=== PATIENT | female | born 1995 | race Caucasian/White ===

== ENCOUNTER 2017-01-12 08:40 | Emergency (ER) | payer BC, MEDICAID ==
[~2017-01-12] VITALS: Ht 157.5 cm; Wt 65.9 kg
[~2017-01-12 08:40] MED LIST: HYDR-3498 PO; IBUP800T25 PO; PREN1TAB49
[2017-01-12 08:44] VITALS: Ht 157.5 cm; Wt 65.9 kg
[2017-01-12] MEDS ORDERED: ONDANSETRON 4 MG INJ IV STA (09:12)
--- NOTE | 2017-01-12 09:18 | ERD ---
ER Documentation Chief Complaint Date/Time DATE: 01/12/17 TIME: 09:08 Chief Complaint pt bib family with vag bleed x 2 wks, has implant x 1 yr fever yesterday HPI 21-year-old female presented emergency department for vaginal bleeding for 2 weeks. Fever yesterday. Stated that he had menstrual period twice for this month. Her last menstrual period ended yesterday. Complains of right flank pain and right lower abdominal pain that started last night. Also added that initially her abdominal pain started on epigastric area that radiates to right lower abdomen. [place] nauseous but no vomiting. Has difficulty walking due to right lower abdominal pain. Sexually active with one partner only, her fianc. Partner has no symptoms. Denies headache, loss of consciousness, dizziness, blurry vision, changes in vision, photophobia, facial pain, ear pain, throat pain, difficulty swallowing, neck pain, shoulder pain, chest pain, cough, hemoptysis, abdominal pain, back pain, loss of appetite, vomiting, hematochezia, diarrhea, constipation, , the possibility of being , bladder and bowel incontinences, extremity weakness, extremity tenderness, numbness or tingling sensation, difficulty walking, recent travel, recent exposure to illness, recent antibiotic use in the last 3 months. Allergy: No known drug allergies. PMH: Right sided kidney stone on her second . Family medical history: A1. LMP: Yesterday. Medications: Denies. Surgery: Denies. Primary Social History: Not working at this time. Occasional drinks alcoholic beverages. Denies smoking, use of illegal drugs. ROS All systems reviewed and are negative except as per history of present illness. Medications Home Meds Active Scripts Tramadol HCl (Tramadol HCl) 50 Mg Tablet, 50 MG PO Q4 Y for PAIN, #15 TAB Prov:JOAN RENO 01/12/17 Ondansetron Hcl* (Zofran*) 4 Mg Tablet, 4 MG PO Q8H Y for NAUSEA AND/OR VOMITING , #20 TAB Prov:PASILABANJOAN F 01/12/17 Ibuprofen* (Motrin*) 800 Mg Tab, 800 MG PO Q8 Y for PAIN AND OR ELEVATED TEMP, # 20 TAB Prov:RADHIKAILAJOAN ROSARIO 01/12/17 Acetaminophen* (Tylophen*) 500 Mg Capsule, 1 CAP PO Q6H Y for PAIN AND OR ELEVATED TEMP, #20 CAP Prov:JOAN RENO 01/12/17 Cephalexin* (Keflex*) 500 Mg Capsule, 500 MG PO TID for 7 Days, CAP Prov:JOAN RENO 01/12/17 Ibuprofen* (Motrin*) 800 Mg Tab, 800 MG PO Q6H Y for PAIN AND OR ELEVATED TEMP, #30 TAB Prov:TRAV GARCIA PA-C 11/16/15 Hydrocodone Bit-Acetaminophen* ([place]*) 5-325 Mg Tab, 1 TAB PO Q6 Y for PAIN, # 20 TAB Prov:TRAV GACRIA PA-C 11/16/15 Reported Medications Vits W-Ca,Fe,Fa(<1MG) () 1 Tab Tablet 07/11/10 Allergies Allergies: Coded Allergies: No Known Allergies (Verified Allergy, Mild, 04/26/15) PMhx/Soc History of Surgery: No Anesthesia Reaction: No Hx Neurological Disorder: No Hx Respiratory Disorders: No Hx Cardiac Disorders: No Hx Psychiatric Problems: No Hx Miscellaneous Medical Probl: No Hx Alcohol Use: No Hx Substance Use: No Hx Tobacco Use: No Physical Exam Vitals Vital Signs Date Time Temp Pulse Resp B/P Pulse Ox O2 Delivery O2 Flow Rate FiO2 01/12/17 12:46 98.3 107 20 128/76 98 Room Air 01/12/17 08:44 100.3 103 16 121/67 97 Physical Exam Const: [] Head: Atraumatic Eyes: Normal Conjunctiva ENT: Normal External Ears, Nose and Mouth. Neck: Full range of motion..~ No meningismus. Resp: Clear to auscultation bilaterally Cardio: Regular rate and rhythm, no murmurs Abd: Soft, non distended. Normal bowel sounds. Right lower abdominal tenderness to light and deep palpation. Developed right lower abdominal pain after jumping once. Skin: No petechiae or rashes Back: Right flank pain, right-sided CVA tenderness. Ext: No cyanosis, or edema Neur: Awake and alert Psych: Normal Mood and Affect Result Diagram: 01/12/17 0925 01/12/17 0925 Results 24 hrs Laboratory Tests Test 01/12/17 09:25 01/12/17 09:50 White Blood Count 16.410^3/ul Red Blood Count 4.9110^6/ul Hemoglobin 12.6g/dl Hematocrit 39.7% Mean Corpuscular Volume 80.9fl Mean Corpuscular Hemoglobin 25.7pg Mean Corpuscular Hemoglobin Concent 31.7g/dl Red Cell Distribution Width 14.7% Platelet Count 01765^3/UL Mean Platelet Volume 10.1fl Neutrophils % 87.8% Lymphocytes % 7.5% Monocytes % 4.0% Eosinophils % 0.1% Basophils % 0.1% Nucleated Red Blood Cells % 0.0/100WBC Neutrophils # (Manual) 14.410^3/ul Lymphocytes # 1.210^3/ul Monocytes # 0.710^3/ul Eosinophils # 0.010^3/ul Basophils # 0.010^3/ul Nucleated Red Blood Cells # 0.010^3/ul Prothrombin Time 14.5Sec Prothrombin Time Ratio 1.1 INR International Normalized Ratio 1.13 Activated Partial Thromboplast Time 31.3Sec Sodium Level 142mmol/L Potassium Level 4.3mmol/L Chloride Level 101mmol/L Carbon Dioxide Level 24mmol/L Anion Gap 21 Blood Urea Nitrogen 9mg/dl Creatinine 0.78mg/dl Glucose Level 105mg/dl Lactic Acid Level 1.3mmol/L Calcium Level 9.6mg/dl Total Bilirubin 0.3mg/dl Direct Bilirubin 0.00mg/dl Indirect Bilirubin 0.3mg/dl Aspartate Amino Transf (AST/SGOT) 18IU/L Alanine Aminotransferase (ALT/SGPT) 19IU/L Alkaline Phosphatase 109IU/L Total Protein 8.2g/dl Albumin 4.6g/dl Globulin 3.60g/dl Albumin/Globulin Ratio 1.27 Amylase Level 83U/L Lipase 69U/L Serum HCG, Qualitative NEGATIVE Urine Color YELLOW Urine Clarity CLEAR Urine pH 7.0 Urine Specific Robinson 1.015 Urine Ketones NEGATIVEmg/dL Urine Nitrite NEGATIVEmg/dL Urine Bilirubin NEGATIVEmg/dL Urine Urobilinogen NEGATIVEmg/dL Urine Leukocyte Esterase NEGATIVELeu/ul Urine Microscopic RBC 7/HPF Urine Microscopic WBC 0/HPF Urine Bacteria FEW/HPF Urine Hemoglobin 1+mg/dL Urine Glucose NEGATIVEmg/dL Urine Total Protein NEGATIVEmg/dl Current Medications Medications (Trade) Dose Ordered Sig/Donald Route PRN Reason Start Time Stop Time Status Last Admin Dose Admin Sodium Chloride (NS) 1,000 ml @ 1,000 mls/hr Q1H ONCE IV 01/12/17 09:30 01/12/17 10:29 DC 01/12/17 10:04 Ceftriaxone Sodium (Rocephin) 1 gm ONCE ONCE IVPB 01/12/17 09:30 01/12/17 10:03 DC Ondansetron HCl 4 mg 4 mg ONCE STAT IV 01/12/17 09:12 01/12/17 09:13 DC 01/12/17 10:04 Ceftriaxone Sodium (Rocephin) 50 ml @ 100 mls/hr ONCE ONCE IVPB 01/12/17 10:30 01/12/17 10:59 DC 01/12/17 10:09 IV Flush 10 ml 10 ml STK-MED ONCE .ROUTE 01/12/17 10:59 01/12/17 11:00 DC Sodium Chloride (NS) 100 ml @ ud STK-MED ONCE .ROUTE 01/12/17 10:59 01/12/17 11:00 DC Iohexol (Omnipaque 300mg/ ml) 150 ml STK-MED ONCE .ROUTE 01/12/17 10:59 01/12/17 11:00 DC Procedures/MDM Examination: Please see physical examination. Disease process, medical treatment was explained to the patient and family member. They verbalized understanding and agreed with the diagnostic tests, medical treatment, and follow-up care. Radiology: Pelvic ultrasound Impression: Unremarkable ultrasound pelvis CT of the abdomen and pelvis with IV contrast Impression: Mild hepatomegaly with a decrease in attenuation suggesting diffuse steatosis. No evidence of urolithiasis or obstructive uropathy. Normal- appearing vermiform appendix visualized. No other significant intra-abdominal or pelvic process identified. Blood works: Reviewed. POC urine : Negative. Urinalysis: Reviewed. During for gonorrhea and Chlamydia: Awaiting for results. Culture urine: Awaiting for results. Treatment: IV insertion. Normal saline IV bolus. Ceftriaxone IV. Zofran IV. Re-evaluation: Denies headache, dizziness, blurry vision, neck pain, shoulder pain, chest pain, back pain, abdominal pain, nausea, vomiting. No episode of emesis in the emergency department. Alert and oriented 4. Speaks full and clear sentences. Respirations even and unlabored. Lung sounds clear to auscultation. Active bowel sounds. There is no right upper/right lower/ epigastric/left upper/left lower abdominal tenderness and light and deep palpation. Negative on Rovsings sign. Negative Cheikh sign. Able to jump 5 times without developing right-sided abdominal pain. No peritoneal signs. Ambulatory with steady gait. No neurovascular deficits. No neurological deficits. Consultation: None. Case discussed with attending physician, Dr. Devin Heredia who agreed with my medical decision making to discharge the patient. Differential diagnosis: Sepsis versus obstructing kidney stones versus nephrolithiasis versus appendicitis versus pancreatitis versus cholecystitis versus diverticulitis versus ovarian torsion versus ovarian cyst rupture versus pelvic inflammatory disease Medical decision m[age]-year-old female presented emergency department for vaginal bleeding for 2 weeks. Fever yesterday. Stated that he had menstrual period twice for this month. Her last menstrual period ended yesterday. Complains of right flank pain and right lower abdominal pain that started last night. Also added that initially her abdominal pain started on epigastric area that radiates to right lower abdomen. [place] nauseous but no vomiting. Has difficulty walking due to right lower abdominal pain. Sexually active with one partner only, her fianc. Partner has no symptoms. Patient's complaint, patient's history about her complaint, my physical findings, diagnostic test results, my reevaluation are consistent my final diagnosis of leukocytosis, abdominal pain. Medications prescribed are the following: Keflex. Motrin. Tylenol. Zofran. Patient and family member are made aware of the side effects and adverse reactions of the medications prescribed. Instructed on when to seek emergent and medical attention in case allergic/anaphylactic reactions or severe side effects and or adverse reactions to medications. Patient and family member verbalized understanding. Patient instructed Instructed to follow-up with his PCP in 24-48 hours. Come back in 24 hours for recheck. Instructed to Call 911 for chest pain, shortness of breath. Advised to come back here in ED as soon as possible for severity of symptoms which includes but not limited to: any new symptoms; shortness of breath/difficulty of breathing; cardiovascular changes; severe gastrointestinal symptoms; signs and symptoms of bleeding and or infection; signs of compartment syndrome/neurovascular changes; neurological changes/deficits. Patient and family member verbalized understanding. Upon discharge, patient is alert and oriented x 4, speaks full and clear sentences, denies pain, has no neurological deficits, has no neurovascular deficits, difficulty of breathing. Breathing even and unlabored. Lung sounds are clear to auscultation. Not in distress. Appears comfortable. Ambulatory with steady gait. Appears satisfied with care provided here in ED. Departure Diagnosis: Primary Impression: Abdominal pain Additional Impressions: Vaginal bleeding Leukocytosis Condition: Stable Additional Instructions: Instructed to follow-up with his PCP in 24-48 hours. Come back in 24 hours for recheck. Instructed to Call 911 for chest pain, shortness of breath. Advised to come back here in ED as soon as possible for severity of symptoms which includes but not limited to: any new symptoms; shortness of breath/difficulty of breathing; cardiovascular changes; severe gastrointestinal symptoms; signs and symptoms of bleeding and or infection; signs of compartment syndrome/neurovascular changes; neurological changes/deficits. Patient and family member verbalized understanding. JOAN RENO Jan 12, 2017 09:17
[2017-01-12] MEDS ORDERED: CEFTRIAXONE 1 GM INJ IVPB ONE (09:30)
[2017-01-12] MEDS ORDERED: SOD CHLORIDE 0.9% 1,000 ML IV ONE (09:30)
--- NOTE | 2017-01-12 10:02 | RADRPT ---
PROCEDURE: US Pelvis CLINICAL INDICATION: Pelvic pain. TECHNIQUE: Sonographic evaluation of the pelvis was performed utilizing both transabdominal and tr ansvaginal technique. Curved array transabdominal transducer technique as well as a high frequency endovaginal probe was utilized. Images were reviewed on the high-resolution PACS workstation. COMPARISON: No prior studies are available for comparison. FINDINGS: The uterus is normal in size, echogenicity, and morphology measuring 8.1 x 3.7 x 4.4 cm in dimension . The uterus is anteverted in normal position. The endometrium is thin and homogeneous measuring 3.1 mm in diameter. The normal trilaminar stripe of the endometrium is preserved. The right ovary measures 3.4 x 2.0 x 2.8 cm in dimension. The left ovary measures 3.0 x 1.8 x 2.3 c m in dimension. The ovaries are symmetric in size, echogenicity, and morphology. Normal Doppler fl ow is demonstrated to both ovaries. There are no adnexal masses. There is no significant free flui d in the pelvis. IMPRESSION: Unremarkable ultrasound of the pelvis. RPTAT: HH .Courtney Kramer MD, Date Time Electronically viewed and signed by .Courtney Kramer MD, on 01/12/2017 10:02 .Mili/
[2017-01-12 10:09] LABS: INR 1.13; PROTIME 14.5 Sec (12.2-14.2); PT RATIO 1.1
[2017-01-12 10:10] LABS: PARTIAL THROMBOPLASTIN TIME 31.3 Sec (25.0-35.0)
[2017-01-12 10:21] LABS: WHITE BLOOD COUNT 16.4 10^3/ul (4.8-10.8)
[2017-01-12 10:22] LABS: BASOPHILS % 0.1 % (0.0-2.0); EOSINOPHILS % 0.1 % (0.0-7.0); HEMATOCRIT 39.7 % (37.0-47.0); HEMOGLOBIN 12.6 g/dl (12.0-16.0); LYMPHOCYTES # 1.2 10^3/ul (0.8-2.9); LYMPHOCYTES % 7.5 % (15.0-51.0); MEAN CORPUSCULAR HEMOGLOBIN 25.7 pg (29.0-33.0); MEAN CORPUSCULAR HGB CONC 31.7 g/dl (32.0-37.0); MEAN CORPUSCULAR VOLUME 80.9 fl (82.0-101.0); MEAN PLATELET VOLUME 10.1 fl (7.4-10.4); MONOCYTE # 0.7 10^3/ul (0.3-0.9); NEUTROPHILS % 87.8 % (39.0-77.0); PLATELET COUNT 434 10^3/UL (140-415); RED BLOOD COUNT 4.91 10^6/ul (4.20-5.40); RED CELL DISTRIBUTION WIDTH 14.7 % (11.5-14.5)
[2017-01-12 10:29] LABS: ALBUMIN 4.6 g/dl (3.3-4.9); ALBUMIN/GLOBULIN RATIO 1.27; BILIRUBIN,INDIRECT 0.3 mg/dl (0-1.1); BILIRUBIN,TOTAL 0.3 mg/dl (0.2-1.3); CALCIUM 9.6 mg/dl (8.4-10.2); CREATININE 0.78 mg/dl (0.44-1.00); POTASSIUM 4.3 mmol/L (3.5-5.1); TOTAL PROTEIN 8.2 g/dl (6.1-8.1)
[2017-01-12] MEDS ORDERED: CEFTRIAXONE 1 GM/50 ML (PMX) 50 ML IVPB ONE (10:30)
[2017-01-12] MEDS ORDERED: SOD CHLORIDE 0.9% 100 ML ONE (10:59)
[2017-01-12] MEDS ORDERED: IOHEXOL 300MG/ML 150 ML BTL ONE (10:59)
--- NOTE | 2017-01-12 11:26 | RADRPT ---
PROCEDURE: CT Abdomen and Pelvis with contrast. CLINICAL INDICATION: Vaginal bleeding. Abdominal pain. TECHNIQUE: CT scan of the abdomen and pelvis with contrast was performed on a multi-detector high- resolution CT scanner. The patient was scanned following the uncomplicated intravenous administrati on of 100 cc of Omnipaque-300. Coronal and sagittal reformatted images were obtained from the axial source images. Images were reviewed on a high-resolution PACS workstation. DOSE: CTDI: (Vol. ) 12.1 mGy, DLP: 682.96 mGy-cm COMPARISON: Pelvic ultrasound from earlier the same date. FINDINGS: Lung Bases: Unremarkable. GI:. Unremarkable. Liver: Liver is mildly enlarged and 19.3 cm in length with a slight decrease in overall attenuation suggesting mild steatosis Q Gallbladder: Gallbladder is well displayed without filling defects or biliary tree dilatation. Pancreas: Unremarkable. Spleen: Unremarkablel Adrenals: Unremarkable. Kidneys: Kidneys function symmetrically without focal mass, urolithiasis or obstructive uropathy. Bladder: Unremarkable. Pelvic Organs: Unremarkable. Skeleton: Normal for age. Other: N/A IMPRESSION: 1. Mild hepatomegaly with a decrease in attenuation suggesting diffuse steatosis. 2. No evidence of urolithiasis or obstructive uropathy. 3. Normal appearing vermiform appendix visualized. 4. No other significant intra-abdominal or pelvic process identified. RPTAT: [facility] Physician Tara Date Time Electronically viewed and signed by Physician Tara on 01/12/2017 11:25 CLARA/
[2017-01-12 11:44] LABS: ADD UMIC YES; UR ASCORBIC ACID NEGATIVE (NEGATIVE); UR BACTERIA FEW /HPF (NONE SEEN); UR BILIRUBIN (Dip) NEGATIVE (NEGATIVE); UR BLOOD (Dip) 1+ mg/dL (NEGATIVE); UR CLARITY CLEAR (CLEAR); UR COLOR YELLOW (YELLOW); UR GLUCOSE (Dip) NEGATIVE (NEGATIVE); UR KETONES (Dip) NEGATIVE (NEGATIVE); UR LEUKOCYTE ESTERASE (Dip) NEGATIVE Leu/ul (NEGATIVE); UR NITRITE (Dip) NEGATIVE (NEGATIVE); UR RBC 7 /HPF (0-5); UR SPECIFIC GRAVITY (Dip) 1.015 (1.003-1.030); UR TOTAL PROTEIN (Dip) NEGATIVE (NEGATIVE); UR UROBILINOGEN (Dip) NEGATIVE (NEGATIVE)
[2017-01-12] MEDS ORDERED: IBUP800T25 PO (12:35)
[2017-01-12] MEDS ORDERED: CEPH-443 PO (12:35)
[2017-01-12] MEDS ORDERED: ACET500C5 PO (12:35)
[2017-01-12] MEDS ORDERED: TRAM50TA2 PO (12:36)
[2017-01-12] MEDS ORDERED: ONDA4TAB8 PO (12:36)
[2017-01-12 12:46] VITALS: BP 128/76; PULSE 107; RESP 20; TEMP 98.3
== END 2017-01-12 12:47 | disposition home or self-care (01) ==
LOC: FTE 08:40
DX: R10.31 Right lower quadrant pain (principal); D72.829 Elevated white blood cell count, unspecified; R10.2 Pelvic and perineal pain
CPT/HCPCS: 36415; 74177; 76830; 76856; 80053; 81001; 82150; 83605; 83690; 84703; 85025; 85610; 85730; 87040; 87086; 87591; 96374; 96375; J0696; J2405; J7030; Q9967; Z7502; Z7610

== ENCOUNTER 2017-09-03 11:53 | Emergency (ER) | END 2017-09-03 19:26 | disposition home or self-care (01) ==